=== PATIENT | female | born 1995 | race African-American/Black ===

== ENCOUNTER 2017-01-10 17:27 | Emergency (ER) | payer MEDICAID ==
[~2017-01-10] VITALS: Ht 157.5 cm; Wt 115.0 kg
[~2017-01-10 17:27] MED LIST: IBUP-232 PO; OXYC1TAB63 PO; VENTAER INH
[2017-01-10 17:31] VITALS: BP 128/84; PULSE 89; RESP 16; TEMP 99.6; O2SAT 100
[2017-01-10 19:01] VITALS: BP 130/59; PULSE 94; RESP 16; TEMP 99.8; O2SAT 99
--- NOTE | 2017-01-10 19:10 | PD ---
HPI Chief Complaint: Fever Time Seen by Provider: 19:03 Travel History International Travel<30 days: No Contact w/Intl Traveler<30days: No Traveled to known affect area: No History of Present Illness HPI Patient is a 21-year-old female with history of asthma who presents to emergency room with complaints of fever. Patient reports that she was not feeling well yesterday, reports that she woke up with a temperature 101.2. Patient to take Tylenol around 2 PM today. She reports that she's had a productive cough, no headache, no neck pain, no sore throat. Reports that her body feels achy. Patient reports that her little child was sick prior to the onset of her symptoms with similar symptoms. Patient denies any abdominal pain , nausea vomiting or diarrhea. Patient denies any vaginal discharge or vaginal bleeding. No dysuria, urinary urgency or frequency. No recent travels. Patient with no chest pain or shortness breath at this time. Patient with no other complaints. PFSH Past Medical History Hx Anticoagulant Therapy: No Asthma: Yes Autoimmune Disease: No Blood Disorders: No Anxiety: No Depression: No Cancer: No Cardiovascular Problems: No Chemotherapy: No Cerebrovascular Accident: No Diabetes: No Diminished Hearing: No Endocrine: No Gastrointestinal Disorders: Yes (CHRONIC ABDOMINAL PAIN) GERD: Yes Genitourinary: No Headaches: Yes Immune Disorder: No Implanted Vascular Access Dvce: No Musculoskeletal: No Neurologic: No Psychiatric: No Reproductive: No Respiratory: Yes (ASTHMA) Immunizations Current: Yes Migraines: Yes Seizures: No Sickle Cell Disease: No ?: Not : 2 Para: 1 Miscarriage: 0 : 0 Past Surgical History Section: Yes (x 1) Gynecologic Surgery: Yes (C-SEC) Hysterectomy: No Tonsillectomy: Yes Other Surgery: Yes (ENDOSCOPY AND COLONOSCOPY) Social History Alcohol Use: No Tobacco Use: No Substance Use: No Allergies-Medications (Allergen,Severity, Reaction): Coded Allergies: methylprednisolone (Unverified Allergy, Severe, RASH, ITCHY, 01/10/17) naproxen (Unverified Allergy, Unknown, 01/10/17) throat swelling; Is ok using ibuprofen,advil Reported Meds & Prescriptions Reported Meds & Active Scripts Active Azithromycin 500 Mg Tab 500 Mg PO DAILY Ibuprofen 600 Mg Tab 600 Mg PO Q6HR Oxycodone-Acetaminophen 5-325 mg Tab 1 Tab PO Q4H PRN Reported Ventolin Hfa 18 GM Inh (Albuterol Sulfate) 90 Mcg/Act Aer 2 Puff INH Q4-6H PRN Review of Systems General / Constitutional: Positive: Fever, Chills Eyes: No: Visual changes HENT: No: Headaches, Sore Throat, Rhinitis, Rhinorrhea, Neck Stiffness, Neck Pain Cardiovascular: No: Chest Pain or Discomfort Respiratory: Positive: Cough, No: Shortness of Breath, Wheezing Gastrointestinal: No: Nausea, Vomiting, Abdominal Pain Genitourinary: No: Urgency, Frequency, Dysuria Musculoskeletal: No: Pain Skin: No Rash Neurologic: No: Weakness, Headache Psychiatric: No: Depression Endocrine: No: Polydipsia Hematologic/Lymphatic: No: Easy Bruising Physical Exam Narrative GENERAL: Mild distress SKIN: Focused skin assessment warm/dry. HEAD: Atraumatic. Normocephalic. EYES: Pupils equal and round. No scleral icterus. No injection or drainage. ENT: No nasal bleeding or discharge. Mucous membranes pink and moist. NECK: Trachea midline. No JVD. CARDIOVASCULAR: Regular rate and rhythm. No murmur appreciated. RESPIRATORY: No accessory muscle use. Clear to auscultation. Breath sounds equal bilaterally. GASTROINTESTINAL: Abdomen soft, non-tender, nondistended. Hepatic and splenic margins not palpable. MUSCULOSKELETAL: No obvious deformities. No clubbing. No cyanosis. No edema. NEUROLOGICAL: Awake and alert. No obvious cranial nerve deficits. Motor grossly within normal limits. Normal speech. PSYCHIATRIC: Appropriate mood and affect; insight and judgment normal. Data Data Last Documented VS Vital Signs Date Time Temp Pulse Resp B/P (MAP) Pulse Ox O2 Delivery O2 Flow Rate FiO2 01/10/17 19:01 99.8 94 16 130/59 (82) 99 Room Air Orders Orders Basic Metabolic Panel (Bmp) (01/10/17 19:03) Complete Blood Count With Diff (01/10/17 19:03) Urinalysis - C+S If Indicated (01/10/17 19:03) Iv Access Insert/Monitor (01/10/17 19:03) Sodium Chloride 0.9% Flush (Ns Flush) (01/10/17 19:15) Ed Urine Pregnancytest Poc (01/10/17 19:03) Group A Rapid Strep Screen (01/10/17 19:08) Influenzae A/B Antigen (01/10/17 19:08) Chest, Pa & Lat (01/10/17 19:08) Strep Culture (Group A) (01/10/17 19:42) Azithromycin (Zithromax) (01/10/17 21:00) Labs Laboratory Tests Test 01/10/17 19:21 01/10/17 19:42 Urine Color YELLOW Urine Turbidity HAZY Urine pH 6.5 Urine Specific [place] 1.038 Urine Protein 30 mg/dL Urine Glucose (UA) NEG mg/dL Urine Ketones NEG mg/dL Urine Occult Blood NEG Urine Nitrite NEG Urine Bilirubin NEG Urine Urobilinogen 2.0 MG/DL Urine Leukocyte Esterase NEG Urine RBC 2 /hpf Urine WBC 2 /hpf Urine Squamous Epithelial Cells 20 /hpf Urine Bacteria RARE /hpf Urine Mucus FEW /lpf Microscopic Urinalysis Comment CULT NOT INDICATED White Blood Count 15.8 TH/MM3 Red Blood Count 4.24 MIL/MM3 Hemoglobin 10.5 GM/DL Hematocrit 33.4 % Mean Corpuscular Volume 78.8 FL Mean Corpuscular Hemoglobin 24.8 PG Mean Corpuscular Hemoglobin Concent 31.4 % Red Cell Distribution Width 16.9 % Platelet Count 299 TH/MM3 Mean Platelet Volume 8.1 FL Neutrophils (%) (Auto) 77.2 % Lymphocytes (%) (Auto) 10.7 % Monocytes (%) (Auto) 9.9 % Eosinophils (%) (Auto) 1.9 % Basophils (%) (Auto) 0.3 % Neutrophils # (Auto) 12.2 TH/MM3 Lymphocytes # (Auto) 1.7 TH/MM3 Monocytes # (Auto) 1.6 TH/MM3 Eosinophils # (Auto) 0.3 TH/MM3 Basophils # (Auto) 0.0 TH/MM3 CBC Comment DIFF FINAL Differential Comment Blood Urea Nitrogen 11 MG/DL Creatinine 0.82 MG/DL Random Glucose 83 MG/DL Calcium Level 8.8 MG/DL Sodium Level 137 MEQ/L Potassium Level 4.3 MEQ/L Chloride Level 104 MEQ/L Carbon Dioxide Level 27.0 MEQ/L Anion Gap 6 MEQ/L Estimat Glomerular Filtration Rate 105 ML/MIN MDM Medical Decision Making Medical Screen Exam Complete: Yes Emergency Medical Condition: Yes Interpretation(s) Vital Signs Date Time Temp Pulse Resp B/P (MAP) Pulse Ox O2 Delivery O2 Flow Rate FiO2 8/20/17 19:01 99.8 94 16 130/59 (82) 99 Room Air 01/10/17 17:31 99.6 89 16 128/84 (99) 100 Differential Diagnosis Differential includes viral syndrome, pneumonia, influenza, uti Narrative Course Patient is a 21-year-old female who presents to emergency with complaints of fever for one day. She reports that she has had a productive cough, with myalgias. Reports that her son was recently sick with similar symptoms. Patient did take a Tylenol around 2 PM today. Patient presents the emergency room to find out why she had a fever today. Patient with no headache or dizziness, no neck pain, no chest pain or shortness of breath, no abdominal pain , nausea vomiting or diarrhea. Patient is afebrile while in the emergency room. X-ray chest ordered, UA ordered, will monitor patient. Vital Signs Date Time Temp Pulse Resp B/P (MAP) Pulse Ox O2 Delivery O2 Flow Rate FiO2 01/10/17 19:01 99.8 94 16 130/59 (82) 99 Room Air 01/10/17 17:31 99.6 89 16 128/84 (99) 100 Laboratory Tests Test 01/10/17 19:21 01/10/17 19:42 Urine Color YELLOW (YELLW/STRAW) Urine Turbidity HAZY (CLEAR) Urine pH 6.5 (5.0-8.5) Urine Specific [place] 1.038 (1.002-1.035) Urine Protein 30 mg/dL (NEG-TRACE) Urine Glucose (UA) NEG mg/dL (NEG) Urine Ketones NEG mg/dL (NEG) Urine Occult Blood NEG (NEG) Urine Nitrite NEG (NEG) Urine Bilirubin NEG (NEG) Urine Urobilinogen 2.0 MG/DL (LESS THAN Urine Leukocyte Esterase NEG (NEG) Urine RBC 2 /hpf (0-3) Urine WBC 2 /hpf (0-5) Urine Squamous Epithelial Cells 20 /hpf (0-5) Urine Bacteria RARE /hpf (NONE) Urine Mucus FEW /lpf (OCC) Microscopic Urinalysis Comment CULT NOT INDICATED White Blood Count 15.8 TH/MM3 (4.0-11.0) Red Blood Count 4.24 MIL/MM3 (4.00-5.30) Hemoglobin 10.5 GM/DL (11.6-15.3) Hematocrit 33.4 % (35.0-46.0) Mean Corpuscular Volume 78.8 FL (80.0-100.0) Mean Corpuscular Hemoglobin 24.8 PG (27.0-34.0) Mean Corpuscular Hemoglobin Concent 31.4 % (32.0-36.0) Red Cell Distribution Width 16.9 % (11.6-17.2) Platelet Count 299 TH/MM3 (150-450) Mean Platelet Volume 8.1 FL (7.0-11.0) Neutrophils (%) (Auto) 77.2 % (16.0-70.0) Lymphocytes (%) (Auto) 10.7 % (9.0-44.0) Monocytes (%) (Auto) 9.9 % (0.0-8.0) Eosinophils (%) (Auto) 1.9 % (0.0-4.0) Basophils (%) (Auto) 0.3 % (0.0-2.0) Neutrophils # (Auto) 12.2 TH/MM3 (1.8-7.7) Lymphocytes # (Auto) 1.7 TH/MM3 (1.0-4.8) Monocytes # (Auto) 1.6 TH/MM3 (0-0.9) Eosinophils # (Auto) 0.3 TH/MM3 (0-0.4) Basophils # (Auto) 0.0 TH/MM3 (0-0.2) CBC Comment DIFF FINAL Differential Comment Blood Urea Nitrogen 11 MG/DL (7-18) Creatinine 0.82 MG/DL (0.50-1.00) Random Glucose 83 MG/DL (74-106) Calcium Level 8.8 MG/DL (8.5-10.1) Sodium Level 137 MEQ/L (136-145) Potassium Level 4.3 MEQ/L (3.5-5.1) Chloride Level 104 MEQ/L (98-107) Carbon Dioxide Level 27.0 MEQ/L (21.0-32.0) Anion Gap 6 MEQ/L (5-15) Estimat Glomerular Filtration Rate 105 ML/MIN (>89) chest xray with no acute cardiopulmonary disease Microbiology Date/Time Source Procedure Growth Status 01/10/17 19:42 Throat Group A Streptococcus Screen Pending Received 01/10/17 19:42 Throat Group A Streptococcus Screen ([facility]) - Final Complete 01/10/17 19:40 Nasal Aspirate Influenza Types A,B Antigen ([facility]) - Final NEGATIVE FOR FLU A AND B ANTIGEN.... Complete All labs and studies reviewed. Patient with acute bronchitis. Plan to treat with azithromycin and have her follow up with her pcp. Signs and symptoms of when to return to the ER was reviewed with patient in detail. Diagnosis Primary Impression: Acute bronchitis Qualified Codes: J20.9 - Acute bronchitis, unspecified Additional Impression: Fever Qualified Codes: R50.9 - Fever, unspecified Patient Instructions: General Instructions Additional Instructions: Please take all medications as prescribed Return to the ER as needed Please follow up with your primary care doctor in 2-3 days Return to ER if symptoms worsen or progress Please take Tylenol or ibuprofen for fever Drink plenty of fluids Med/Other Pt SpecificInfo: Prescription(s) given Scripts Azithromycin (Azithromycin) 500 Mg Tab 500 MG PO DAILY for Infection, #5 TAB 0 Refills Prov: Haydee Momin DO 01/10/17 Disposition: 01 DISCHARGE HOME Condition: Stable Haydee Momin DO Jan 10, 2017 19:10
[2017-01-10] MEDS ORDERED: SODIUM CHLORIDE 0.9% FLUSH 10 ML FLUSH IV FLUSH PRN (19:15)
--- NOTE | 2017-01-10 19:35 | RADRPT ---
EXAM DATE/TIME: 01/10/2017 19:22 [facility] COMPARISON: No previous studies available for comparison. INDICATIONS : Cough. MEDICAL HISTORY : None. SURGICAL HISTORY : None. ENCOUNTER: Initial ACUITY: 1 day PAIN SCORE: 0/10 LOCATION: Bilateral chest FINDINGS: The lungs are clear without infiltrate, nodule, or mass. There is no appreciable pleural effusion fo r technique. Heart and mediastinum are unremarkable. CONCLUSION: No acute cardiopulmonary disease. Yon Farias MD on January 10, 2017 at 19:33 Board Certified Radiologist. This report was verified electronically.
[2017-01-10 20:29] LABS: AUTOMATED NEUTROPHIL # 12.2 TH/MM3 (1.8-7.7); BASOPHIL % 0.3 % (0.0-2.0); EOSINOPHIL # 0.3 TH/MM3 (0-0.4); EOSINOPHIL % 1.9 % (0.0-4.0); HEMATOCRIT 33.4 % (35.0-46.0); HEMO FLAGS DIFF FINAL; LYMPH % 10.7 % (9.0-44.0); LYMPHOCYTE # 1.7 TH/MM3 (1.0-4.8); MEAN CELL VOLUME 78.8 FL (80.0-100.0); MEAN CORPUSCULAR HEMOGLOBIN 24.8 PG (27.0-34.0); MEAN CORPUSCULAR HGB CONC 31.4 % (32.0-36.0); MONO % 9.9 % (0.0-8.0); NEUT % 77.2 % (16.0-70.0); PLATELET COUNT 299 TH/MM3 (150-450); RED BLOOD COUNT 4.24 MIL/MM3 (4.00-5.30); RED CELL DISTRIBUTION WIDTH 16.9 % (11.6-17.2); WHITE BLOOD COUNT 15.8 TH/MM3 (4.0-11.0)
[2017-01-10 20:33] LABS: BACTERIA, URINE RARE /hpf; BLOOD, URINE NEG (NEG); COMMENT (UR) CULT NOT INDICATED; CULTURE IF INDICATED CULT NOT INDICATED; GLUCOSE,URINE NEG (NEG); KETONE, URINE NEG (NEG); MUCUS URINE FEW /lpf (OCC); NITRITE,URINE NEG (NEG); PH, URINE 6.5 (5.0-8.5); SQUAMOUS EPITHELIAL CELL URINE 20 /hpf (0-5); URINE COLOR YELLOW (YELLW/STRAW)
[2017-01-10 20:44] LABS: POTASSIUM 4.3 MEQ/L (3.5-5.1)
[2017-01-10] MEDS ORDERED: AZIT500T2 PO (20:56)
[2017-01-10] MEDS ORDERED: AZITHROMYCIN 250 MG TAB PO ONE (21:00)
== END 2017-01-10 22:37 | disposition home or self-care (01) ==
LOC: NEPE 17:27
DX: J20.9 Acute bronchitis, unspecified (principal); M79.1 Myalgia; J45.909 Unspecified asthma, uncomplicated; K21.9 Gastro-esophageal reflux disease without esophagitis; Z79.899 Other long term (current) drug therapy
CPT/HCPCS: 71020; 80048; 81001; 84703; 85025; 87081; 87804; 87880; 99284

== ENCOUNTER 2017-04-15 20:21 | Emergency (ER) | payer MEDICAID ==
[~2017-04-15] VITALS: Ht 157.5 cm; Wt 115.0 kg
[~2017-04-15 20:21] MED LIST changes: +AZIT500T2 PO
[2017-04-15 20:23] VITALS: BP 132/82; PULSE 86; RESP 18; TEMP 98.1; O2SAT 98
--- NOTE | 2017-04-15 21:02 | PD ---
HPI Chief Complaint: Abdominal Pain Time Seen by Provider: 20:54 Travel History International Travel<30 days: No Contact w/Intl Traveler<30days: No Traveled to known affect area: No History of Present Illness HPI 21 yo F abdominal pain in the epigastrium and RUQ. Duration approx 2 weeks. + Fever + vomiting. No urinary symptoms. no diarrhea. decreased PO reported. any solid intake causes worsening pain. liquids are ok. last PO intake was at home, thanksgiving dinner which patient could not tolerate. no vb/vd. lmp was one year ago. pt currently. similar pain after first child possible gallbladder disease, which was normal then. PFSH Past Medical History Hx Anticoagulant Therapy: No Asthma: Yes Autoimmune Disease: No Blood Disorders: No Anxiety: No Depression: No Cancer: No Cardiovascular Problems: No Chemotherapy: No Cerebrovascular Accident: No Diabetes: No Diminished Hearing: No Endocrine: No Gastrointestinal Disorders: Yes (CHRONIC ABDOMINAL PAIN) GERD: Yes Genitourinary: No Headaches: Yes Immune Disorder: No Implanted Vascular Access Dvce: No Musculoskeletal: No Neurologic: No Psychiatric: No Reproductive: No Respiratory: Yes (ASTHMA) Immunizations Current: Yes Migraines: Yes Seizures: No Sickle Cell Disease: No Influenza Vaccination: No ?: Not LMP: no period for year : 2 Para: 12 Miscarriage: 0 : 0 Past Surgical History Section: Yes (x2) Gynecologic Surgery: Yes (C-SEC) Hysterectomy: No Tonsillectomy: Yes Other Surgery: Yes (ENDOSCOPY AND COLONOSCOPY) Social History Alcohol Use: No Tobacco Use: No Substance Use: No Allergies-Medications (Allergen,Severity, Reaction): Coded Allergies: methylprednisolone (Unverified Allergy, Severe, RASH, ITCHY, 04/15/17) ibuprofen (Verified Allergy, Unknown, Anaphylaxis, 04/15/17) naproxen (Unverified Allergy, Unknown, 04/15/17) throat swelling; Is ok using ibuprofen,advil Reported Meds & Prescriptions Reported Meds & Active Scripts Active Azithromycin 500 Mg Tab 500 Mg PO DAILY Ibuprofen 600 Mg Tab 600 Mg PO Q6HR Oxycodone-Acetaminophen 5-325 mg Tab 1 Tab PO Q4H PRN Reported Ventolin Hfa 18 GM Inh (Albuterol Sulfate) 90 Mcg/Act Aer 2 Puff INH Q4-6H PRN Review of Systems Except as stated in HPI: all other systems reviewed are Neg General / Constitutional: Positive: Fever Gastrointestinal: Positive: Nausea, Vomiting, Abdominal Pain, No: Diarrhea Physical Exam Narrative GENERAL: 21 yo F, BMI 46, NAD, WNWD SKIN: Warm and dry. HEAD: Atraumatic. Normocephalic. EYES: Pupils equal and round. No scleral icterus. No injection or drainage. ENT: No nasal bleeding or discharge. Mucous membranes pink and moist. NECK: Trachea midline. No JVD. CARDIOVASCULAR: Regular rate and rhythm. RESPIRATORY: No accessory muscle use. Clear to auscultation. Breath sounds equal bilaterally. GASTROINTESTINAL: Soft. No focus of tenderness. No tenderness at McBurney's point. Negative Stoddard's sign. MUSCULOSKELETAL: Extremities without clubbing, cyanosis, or edema. No obvious deformities. NEUROLOGICAL: Awake and alert. No obvious cranial nerve deficits. Motor grossly within normal limits. Five out of 5 muscle strength in the arms and legs. Normal speech. PSYCHIATRIC: Appropriate mood and affect; insight and judgment normal. Data Data Last Documented VS Vital Signs Date Time Temp Pulse Resp B/P (MAP) Pulse Ox O2 Delivery O2 Flow Rate FiO2 04/15/17 20:23 98.1 86 18 132/82 (99) 98 Room Air VS reviewed Orders Orders Ed Discharge Order (04/15/17 21:09) MDM Medical Decision Making Medical Screen Exam Complete: Yes Emergency Medical Condition: Yes Medical Record Reviewed: Yes Differential Diagnosis gastritis, gallbladder colic, cholecystitis acute or chronic, pancreatitis, IUP Narrative Course ta us shows gb without gbw thickening, no pericholecystic fluid, no stone, no tenderness/Stoddard's sign, no biliary ductal dilatation follow up with gi advised pt agreeable with plan scripts as below Diagnosis Primary Impression: Epigastric pain Additional Impressions: Anorexia Vomiting Qualified Codes: R11.10 - Vomiting, unspecified Referrals: [facility] call for appointment Med/Other Pt SpecificInfo: Prescription(s) given Scripts Famotidine (Pepcid) 20 Mg Tab 20 MG PO BID for 10 Days, #20 TAB 0 Refills Prov: Memo Corcoran MD 04/15/17 Aluminum Hydroxide-Mag Carb Liq (Gaviscon Liq) 95-358 Mg/15 Ml Susp 15-30 ML PO QID Y for HEARTBURN for 7 Days, ML 0 Refills Maximum 120 mL/24 hrs. Prov: Memo Corcoran MD 04/15/17 Ondansetron Odt (Zofran Odt) 4 Mg Tab 4 MG SL Q8HR Y for Nausea/Vomiting, #10 TAB 0 Refills Prov: Memo Corcoran MD 04/15/17 Disposition: 01 DISCHARGE HOME Condition: Stable Memo Corcoran MD Apr 15, 2017 21:02
[2017-04-15] MEDS ORDERED: GAVISUS PO (21:12)
[2017-04-15] MEDS ORDERED: ZOFR4TAB3 SL (21:12)
[2017-04-15] MEDS ORDERED: FAMO1TAB37 PO (21:12)
== END 2017-04-15 21:24 | disposition home or self-care (01) ==
LOC: NEPK 20:21
DX: R10.13 Epigastric pain (principal); R63.0 Anorexia; R11.2 Nausea with vomiting, unspecified; J45.909 Unspecified asthma, uncomplicated; K21.9 Gastro-esophageal reflux disease without esophagitis; Z79.899 Other long term (current) drug therapy; Z88.6 Allergy status to analgesic agent; Z88.8 Allergy status to other drugs, medicaments and biological substances
CPT/HCPCS: 99284

== ENCOUNTER 2017-06-14 23:33 | Emergency (ER) | payer MEDICAID | END 2017-06-15 01:37 | disposition left against medical advice (07) | LOC: NED 23:33 | DX: S89.91XA Unspecified injury of right lower leg, initial encounter (principal); X58.XXXA Exposure to other specified factors, initial encounter | CPT/HCPCS: 99281 ==

== ENCOUNTER 2017-06-19 18:17 | Emergency (ER) | payer MEDICAID ==
[~2017-06-19] VITALS: Ht 157.5 cm; Wt 108.0 kg
[~2017-06-19 18:17] MED LIST changes: +FAMO1TAB37 PO; +GAVISUS PO; +ZOFR4TAB3 SL
[2017-06-19 18:19] VITALS: BP 118/70; PULSE 107; RESP 16; TEMP 99; O2SAT 97
--- NOTE | 2017-06-19 20:13 | PD ---
HPI Chief Complaint: Abdominal Pain Time Seen by Provider: 20:09 Travel History International Travel<30 days: No Contact w/Intl Traveler<30days: No Traveled to known affect area: No History of Present Illness HPI 22-year-old female patient presents to the ER today because she states that she has noticed today that her left arm is swelling, started on its own, and also states she has had abdominal discomfort in the upper abdomen today. She states that her abdominal pain is a 10 out of 10. She also states nausea, but denies any vomiting to me, diarrhea, or any other issues. Modifying Factors: None Associated Signs & Symptoms: Left arm swelling, abdominal pain, nausea Risk Factors: None PFSH Past Medical History Hx Anticoagulant Therapy: No Asthma: Yes Autoimmune Disease: No Blood Disorders: No Anxiety: No Depression: No Cancer: No Cardiovascular Problems: No Chemotherapy: No Cerebrovascular Accident: No Diabetes: No Diminished Hearing: No Endocrine: No Gastrointestinal Disorders: Yes (CHRONIC ABDOMINAL PAIN) GERD: Yes Genitourinary: No Headaches: Yes Immune Disorder: No Implanted Vascular Access Dvce: No Musculoskeletal: No Neurologic: No Psychiatric: No Reproductive: No Respiratory: Yes (ASTHMA) Immunizations Current: Yes Migraines: Yes Seizures: No Sickle Cell Disease: No ?: Not : 2 Para: 12 Miscarriage: 0 : 0 Past Surgical History Section: Yes (x2) Gynecologic Surgery: Yes (C-SEC) Hysterectomy: No Tonsillectomy: Yes Other Surgery: Yes (ENDOSCOPY AND COLONOSCOPY) Social History Alcohol Use: No Tobacco Use: No Substance Use: No Allergies-Medications (Allergen,Severity, Reaction): Coded Allergies: methylprednisolone (Unverified Allergy, Severe, RASH, ITCHY, 06/15/17) ibuprofen (Verified Allergy, Unknown, Anaphylaxis, 06/15/17) naproxen (Unverified Allergy, Unknown, 06/15/17) throat swelling; Is ok using ibuprofen,advil Reported Meds & Prescriptions Reported Meds & Active Scripts Active Reported Phentermine (Phentermine HCl) 37.5 Mg Cap 37.5 Mg PO DAILY Ventolin Hfa 18 GM Inh (Albuterol Sulfate) 90 Mcg/Act Aer 2 Puff INH Q4-6H PRN Review of Systems Except as stated in HPI: all other systems reviewed are Neg Physical Exam Narrative GENERAL: Well-developed young -[place] female patient currently none acute distress. Awake and oriented 3. SKIN: Focused skin assessment warm/dry. HEAD: Atraumatic. Normocephalic. EYES: Pupils equal and round. No scleral icterus. No injection or drainage. ENT: No nasal bleeding or discharge. Mucous membranes pink and moist. NECK: Trachea midline. No JVD. Supple. CARDIOVASCULAR: Regular rate and rhythm. No murmur appreciated. RESPIRATORY: No accessory muscle use. Clear to auscultation. Breath sounds equal bilaterally. GASTROINTESTINAL: Abdomen soft, non-tender, nondistended. Hepatic and splenic margins not palpable. Benign. MUSCULOSKELETAL: No obvious deformities. No clubbing. No cyanosis. No edema. EXTREMITIES: No clubbing, cyanosis, or edema. No joint tenderness, effusion, or edema noted. I do not see significant edema on my evaluation of the left arm, there is no focal areas of tenderness, neurovascularly intact. NEUROLOGICAL: Awake and alert. No obvious cranial nerve deficits. Motor grossly within normal limits. Normal speech. PSYCHIATRIC: Appropriate mood and affect; insight and judgment normal. Data Data Last Documented VS Vital Signs Date Time Temp Pulse Resp B/P (MAP) Pulse Ox O2 Delivery O2 Flow Rate FiO2 06/19/17 18:19 99.0 107 16 118/70 (86) 97 Orders Orders Complete Blood Count With Diff (06/19/17 20:05) Comprehensive Metabolic Panel (06/19/17 20:05) Lipase (06/19/17 20:05) Urinalysis - C+S If Indicated (06/19/17 20:05) Iv Access Insert/Monitor (06/19/17 20:05) Ecg Monitoring (06/19/17 20:05) Oximetry (06/19/17 20:05) Sodium Chloride 0.9% Flush (Ns Flush) (06/19/17 20:15) Ed Urine Pregnancytest Poc (06/19/17 20:05) Us Arm Venous Doppler (06/19/17 20:10) Labs Laboratory Tests Test 06/19/17 20:25 White Blood Count 8.3 TH/MM3 Red Blood Count 4.63 MIL/MM3 Hemoglobin 12.6 GM/DL Hematocrit 36.3 % Mean Corpuscular Volume 78.4 FL Mean Corpuscular Hemoglobin 27.3 PG Mean Corpuscular Hemoglobin Concent 34.8 % Red Cell Distribution Width 17.3 % Platelet Count 297 TH/MM3 Mean Platelet Volume 8.3 FL Neutrophils (%) (Auto) 63.8 % Lymphocytes (%) (Auto) 26.8 % Monocytes (%) (Auto) 7.7 % Eosinophils (%) (Auto) 1.3 % Basophils (%) (Auto) 0.4 % Neutrophils # (Auto) 5.3 TH/MM3 Lymphocytes # (Auto) 2.2 TH/MM3 Monocytes # (Auto) 0.6 TH/MM3 Eosinophils # (Auto) 0.1 TH/MM3 Basophils # (Auto) 0.0 TH/MM3 CBC Comment DIFF FINAL Differential Comment Urine Color YELLOW Urine Turbidity HAZY Urine pH 6.0 Urine Specific [place] 1.041 Urine Protein 100 mg/dL Urine Glucose (UA) NEG mg/dL Urine Ketones 10 mg/dL Urine Occult Blood NEG Urine Nitrite NEG Urine Bilirubin NEG Urine Urobilinogen 2.0 MG/DL Urine Leukocyte Esterase MOD Urine RBC 3 /hpf Urine WBC 3 /hpf Urine Squamous Epithelial Cells 11 /hpf Urine Calcium Oxalate Crystals MANY /hpf Urine Mucus MANY /lpf Microscopic Urinalysis Comment CULT NOT INDICATED Blood Urea Nitrogen 6 MG/DL Creatinine 0.92 MG/DL Random Glucose 95 MG/DL Total Protein 7.9 GM/DL Albumin 4.0 GM/DL Calcium Level 9.7 MG/DL Alkaline Phosphatase 70 U/L Aspartate Amino Transf (AST/SGOT) 14 U/L Alanine Aminotransferase (ALT/SGPT) 17 U/L Total Bilirubin 0.3 MG/DL Sodium Level 141 MEQ/L Potassium Level 3.4 MEQ/L Chloride Level 105 MEQ/L Carbon Dioxide Level 28.4 MEQ/L Anion Gap 8 MEQ/L Estimat Glomerular Filtration Rate 92 ML/MIN Lipase 41 U/L [facility] Medical Decision Making Medical Screen Exam Complete: Yes Emergency Medical Condition: Yes Medical Record Reviewed: Yes Interpretation(s) Laboratory Tests Test 06/19/17 20:25 Mean Corpuscular Volume 78.4 FL (80.0-100.0) Red Cell Distribution Width 17.3 % (11.6-17.2) Urine Turbidity HAZY (CLEAR) Urine Specific [place] 1.041 (1.002-1.035) Urine Protein 100 mg/dL (NEG-TRACE) Urine Ketones 10 mg/dL (NEG) Urine Leukocyte Esterase MOD (NEG) Urine Calcium Oxalate Crystals MANY /hpf (NONE) Urine Mucus MANY /lpf (OCC) Blood Urea Nitrogen 6 MG/DL (7-18) Aspartate Amino Transf (AST/SGOT) 14 U/L (15-37) Potassium Level 3.4 MEQ/L (3.5-5.1) Lipase 41 U/L (73-393) Differential Diagnosis Left arm swelling, abdominal pain: DVT versus muscle spasms versus gastroenteritis versus viral syndrome versus pancreatitis versus dehydration versus metabolic issues Narrative Course Ultrasound the left arm shows no signs of DVT. Abdomen is fairly benign and I' m not suspecting acute intra-abdominal process. No neurovascular issues were identified on evaluation, pulse of present and equal bilaterally. Patient denies any trauma. Lab work did not indicate any significant metabolic issues. There is no leukocytosis. At this point, symptoms may be secondary to a viral illness and some muscle spasms. My plan would be to treat her symptomatically and have her follow-up with primary care doctor. Return for worsening in symptoms as necessary. The plan has been discussed with her and she states understanding. Diagnosis Primary Impression: Abdominal pain Additional Impressions: Left arm pain Left arm swelling Med/Other Pt SpecificInfo: Prescription(s) given Scripts Acetaminophen (Tylenol) 325 Mg Tab 650 MG PO Q6H Y for PAIN SCALE 1 TO 10, #20 TAB 0 Refills Prov: Zaire Luke MD 06/19/17 Cyclobenzaprine (Flexeril) 10 Mg Tab 10 MG PO TID for Muscle Spasm, #12 TAB 0 Refills Prov: Zaire Luke MD 06/19/17 Famotidine (Pepcid) 20 Mg Tab 20 MG PO BID for 10 Days, #20 TAB 0 Refills Prov: Zaire Luke MD 06/19/17 Disposition: 01 DISCHARGE HOME Condition: Stable Zaire Luke MD Jun 19, 2017 20:13
[2017-06-19] MEDS ORDERED: SODIUM CHLORIDE 0.9% FLUSH 10 ML FLUSH IV FLUSH PRN (20:15)
[2017-06-19] MEDS ORDERED: PHEN37.54 PO (20:22)
[2017-06-19 21:02] LABS: AUTOMATED NEUTROPHIL # 5.3 TH/MM3 (1.8-7.7); BASOPHIL % 0.4 % (0.0-2.0); EOSINOPHIL # 0.1 TH/MM3 (0-0.4); EOSINOPHIL % 1.3 % (0.0-4.0); HEMATOCRIT 36.3 % (35.0-46.0); HEMOGLOBIN 12.6 GM/DL (11.6-15.3); LYMPH % 26.8 % (9.0-44.0); LYMPHOCYTE # 2.2 TH/MM3 (1.0-4.8); MEAN CELL VOLUME 78.4 FL (80.0-100.0); MEAN CORPUSCULAR HEMOGLOBIN 27.3 PG (27.0-34.0); MEAN CORPUSCULAR HGB CONC 34.8 % (32.0-36.0); MEAN PLATELET VOLUME 8.3 FL (7.0-11.0); MONO % 7.7 % (0.0-8.0); MONOCYTE # 0.6 TH/MM3 (0-0.9); NEUT % 63.8 % (16.0-70.0); PLATELET COUNT 297 TH/MM3 (150-450); RED BLOOD COUNT 4.63 MIL/MM3 (4.00-5.30); RED CELL DISTRIBUTION WIDTH 17.3 % (11.6-17.2); WHITE BLOOD COUNT 8.3 TH/MM3 (4.0-11.0)
[2017-06-19 21:07] LABS: BLOOD, URINE NEG (NEG); CALCIUM OXALATE CRYSTALS,URINE MANY /hpf; GLUCOSE,URINE NEG (NEG); KETONE, URINE 10 mg/dL (NEG); MUCUS URINE MANY /lpf (OCC); NITRITE,URINE NEG (NEG); SQUAMOUS EPITHELIAL CELL URINE 11 /hpf (0-5); URINE COLOR YELLOW (YELLW/STRAW); URINE LEUKOCYTE ESTERASE MOD (NEG)
[2017-06-19 21:08] LABS: BILIRUBIN, URINE NEG (NEG)
[2017-06-19 21:21] LABS: AST (GOT) 14 U/L (15-37); BICARBONATE 28.4 MEQ/L (21.0-32.0); BLOOD UREA NITROGEN 6 MG/DL (7-18); CALCIUM 9.7 MG/DL (8.5-10.1); CHLORIDE 105 MEQ/L (98-107); CREATININE 0.92 MG/DL (0.50-1.00); GLOMERULAR FILTRATION RATE 92 ML/MIN (>89); GLUCOSE,RANDOM 95 MG/DL (74-106); LIPASE 41 U/L (73-393); SODIUM (NA) 141 MEQ/L (136-145)
[2017-06-19 21:22] LABS: ALT (GPT) 17 U/L (10-53)
[2017-06-19 21:24] LABS: ALKALINE PHOSPHATASE 70 U/L (45-117); TOTAL BILIRUBIN ADULT 0.3 MG/DL (0.2-1.0); TOTAL PROTEIN 7.9 GM/DL (6.4-8.2)
--- NOTE | 2017-06-19 21:36 | RADRPT ---
EXAM DATE/TIME: 06/19/2017 20:29 [facility] COMPARISON: No previous studies available for comparison. INDICATIONS : Left arm swelling. MEDICAL HISTORY : Gastroesophageal reflux disease. Glasses. Migraine. Asthma. Abdominal pain. SURGICAL HISTORY : Tonsillectomy. section. Colonoscopy. Endoscopy. ENCOUNTER: Initial ACUITY: 1 day PAIN SCORE: 5/10 LOCATION: Left arm. FINDINGS: There is spontaneous flow documented in the brachial, basilic, cephalic, axillary, and subclavian vei ns. The vessels are compressible and augmentation response is documented. No filling defects are se en. The flow is phasic with respiration. Direction of flow in the jugular vein is caudal. CONCLUSION: No venous thrombosis of the left upper extremity. Hill Angel MD on June 19, 2017 at 21:33 Board Certified Radiologist. This report was verified electronically.
[2017-06-19] MEDS ORDERED: FAMO1TAB37 PO (21:41)
[2017-06-19] MEDS ORDERED: TYLE325T PO (21:41)
[2017-06-19] MEDS ORDERED: CYCL10TA PO (21:41)
[2017-06-19] MEDS ORDERED: CYCLOBENZAPRINE HCL 10 MG TAB PO ONE (21:45)
== END 2017-06-19 21:58 | disposition home or self-care (01) ==
LOC: NEPC 18:17
DX: R10.9 Unspecified abdominal pain (principal); M79.602 Pain in left arm; M79.89 Other specified soft tissue disorders; J45.909 Unspecified asthma, uncomplicated
CPT/HCPCS: 80053; 81001; 83690; 84703; 85025; 93971; 99285

== ENCOUNTER 2017-06-28 17:44 | Emergency (ER) | payer MEDICAID ==
[~2017-06-28 17:44] MED LIST changes: -AZIT500T2 PO; +CYCL10TA PO; -GAVISUS PO; -IBUP-232 PO; -OXYC1TAB63 PO; +PHEN37.54 PO; +TYLE325T PO; -ZOFR4TAB3 SL
[2017-06-28 17:47] VITALS: BP 98/60; PULSE 100; RESP 16; TEMP 97.7; O2SAT 100
--- NOTE | 2017-06-28 21:04 | PD ---
HPI Chief Complaint: Skin Problem Time Seen by Provider: 20:55 Travel History International Travel<30 days: No Contact w/Intl Traveler<30days: No Traveled to known affect area: No History of Present Illness HPI Patient's 22-year-old female presenting to emergency for evaluation of lumps on her skin. Patient states they've been there for a while, she reports that she' s been here for this and then has been to her primary doctor several times. She denies redness, drainage, fevers, chills. She states that her primary doctor didn't do anything. Patient reports that she feels they're getting bigger. She reports that these lumps caused her to have muscle pain. She reports the pain as a 3 out of 10 and states it feels sore. Symptom onset was gradual, there are no alleviating factors. There are no exacerbating factors. PFSH Past Medical History Hx Anticoagulant Therapy: No Asthma: Yes Autoimmune Disease: No Blood Disorders: No Anxiety: No Depression: No Cancer: No Cardiovascular Problems: No Chemotherapy: No Cerebrovascular Accident: No Diabetes: No Diminished Hearing: No Endocrine: No Gastrointestinal Disorders: Yes (CHRONIC ABDOMINAL PAIN) GERD: Yes Genitourinary: No Headaches: Yes Immune Disorder: No Implanted Vascular Access Dvce: No Musculoskeletal: No Neurologic: No Psychiatric: No Reproductive: No Respiratory: Yes (ASTHMA) Immunizations Current: Yes Migraines: Yes Seizures: No Sickle Cell Disease: No ?: Not : 2 Para: 2 Miscarriage: 0 : 0 Past Surgical History Section: Yes (x2) Gynecologic Surgery: Yes (C-SEC) Hysterectomy: No Tonsillectomy: Yes Other Surgery: Yes (ENDOSCOPY AND COLONOSCOPY) Social History Alcohol Use: No Tobacco Use: No Substance Use: No Allergies-Medications (Allergen,Severity, Reaction): Coded Allergies: methylprednisolone (Unverified Allergy, Severe, RASH, ITCHY, 06/28/17) Reported Meds & Prescriptions Reported Meds & Active Scripts Active Tylenol (Acetaminophen) 325 Mg Tab 650 Mg PO Q6H PRN Reported Phentermine (Phentermine HCl) 37.5 Mg Cap 37.5 Mg PO DAILY Ventolin Hfa 18 GM Inh (Albuterol Sulfate) 90 Mcg/Act Aer 2 Puff INH Q4-6H PRN Review of Systems Except as stated in HPI: all other systems reviewed are Neg Skin: Positive Lumps Physical Exam Narrative GENERAL: Obese, well-developed, alert female. Presenting in no acute distress. SKIN: Warm and dry. No rash or obvious lesions, no palpable lumps or masses. HEAD: Normocephalic. EYES: No scleral icterus. No injection or drainage. NECK: Supple, trachea midline. No JVD or lymphadenopathy. CARDIOVASCULAR: Regular rate and rhythm without murmurs, gallops, or rubs. RESPIRATORY: Breath sounds equal bilaterally. No accessory muscle use. GASTROINTESTINAL: Abdomen soft, non-tender, nondistended. MUSCULOSKELETAL: No cyanosis, or edema. BACK: Nontender without obvious deformity. No CVA tenderness. Data Data Last Documented VS Vital Signs Date Time Temp Pulse Resp B/P (MAP) Pulse Ox O2 Delivery O2 Flow Rate FiO2 06/28/17 17:47 97.7 100 16 98/60 (73) [address] [facility] Medical Decision Making Medical Screen Exam Complete: Yes Emergency Medical Condition: Yes Interpretation(s) Vital Signs Date Time Temp Pulse Resp B/P (MAP) Pulse Ox O2 Delivery O2 Flow Rate FiO2 06/28/17 17:47 97.7 100 16 98/60 (73) 100 Differential Diagnosis Lipoma versus abscess versus cyst versus normal exam Narrative Course Patient is a morbidly obese female presenting for evaluation of reported lumps on her skin. Physical examination appears consistent with subcutaneous fat. There were no palpable lumps, masses, redness, warmth, fluctuance noted in any of the areas patient addressed. Her vital signs are stable. She was encouraged to follow-up with her primary doctor for possible referral to title supervisor if needed. A medical screening exam was performed: At the time of evaluation the presenting medical condition was determined not to be of an emergent nature. The patient was given the option of receiving additional care, but declined. Patient was given options for additional community resources from which to obtain care. The Patient Has Been advised to seek medical attention for their presenting complaint. The patient has been advised to return to the ER at any time if an emergent condition develops. Diagnosis Primary Impression: Encounter for medical screening examination Condition: Stable Nisha Jesus Jun 28, 2017 21:04
== END 2017-06-28 21:09 | disposition left against medical advice (07) ==
LOC: NEPK 17:44
DX: R22.9 Localized swelling, mass and lump, unspecified (principal)
CPT/HCPCS: 99281

== ENCOUNTER 2017-07-05 14:33 | Emergency (ER) | payer MEDICAID ==
[~2017-07-05 14:33] MED LIST changes: -CYCL10TA PO; -FAMO1TAB37 PO
[2017-07-05 14:35] VITALS: BP 121/82; PULSE 115; RESP 16; TEMP 98.2; O2SAT 97
--- NOTE | 2017-07-05 15:09 | RADRPT ---
EXAM DATE/TIME: 07/05/2017 14:59 [facility] COMPARISON: CHEST PA & LAT, January 10, 2017, 19:22. INDICATIONS : Chest pain for 1 day. MEDICAL HISTORY : Asthma. SURGICAL HISTORY : None. ENCOUNTER: Initial ACUITY: 1 day PAIN SCORE: 7/10 LOCATION: Left chest FINDINGS: PA and lateral views of the chest demonstrate the lungs to be symmetrically aerated without evidence of mass, infiltrate or effusion. The cardiomediastinal contours are unremarkable. Osseous structure s are intact. CONCLUSION: No acute disease. Martinez Velarde MD FACR on July 05, 2017 at 15:06 Board Certified Radiologist. This report was verified electronically.
[2017-07-05] MEDS ORDERED: KETOROLAC TROMETHAMINE 30 MG/ML (IVP) VIAL IV PUSH ONE (16:15)
[2017-07-05] MEDS ORDERED: ONDANSETRON HCL 4 MG/2 ML VIAL IV PUSH ONE (16:15)
[2017-07-05] MEDS ORDERED: MORPHINE SULFATE 4 MG/ML INJ IV PUSH ONE (16:15)
--- NOTE | 2017-07-05 16:17 | PD ---
HPI Chief Complaint: Chest Pain Time Seen by Provider: 15:53 Travel History International Travel<30 days: No Contact w/Intl Traveler<30days: No Traveled to known affect area: No History of Present Illness HPI The patient is a 22-year-old after [place] female who presents to the emergency department for left arm pain and left-sided chest pain. The patient states she has had some lumps in the left upper extremity for the last month, was initially told they were lipomas and advised to follow-up with a physician on an outpatient basis. The patient then went to an urgent care was advised they were not a lipoma and a follow-up with her doctor. The patient then saw her doctor, Dr. Lazcano, who ordered her outpatient blood test. This was on Wednesday, however, the patient did not have the blood test performed over the weekend and states she was unable to go this morning prior to work at 10 AM because of her children. She then developed left arm pain which is located over the shoulder and the proximal wrist, sharp, worse with certain movements, radiates to the chest. She also complains of shortness of breath secondary to the pain. She denies any history of PE or DVT. She denies any fever, chills, or sweats. She denies any trauma to left upper extremity. She denies any associated fever, chills, or sweats. PFSH Past Medical History Hx Anticoagulant Therapy: No Asthma: Yes Autoimmune Disease: No Blood Disorders: No Anxiety: No Depression: No Cancer: No Cardiovascular Problems: No Chemotherapy: No Cerebrovascular Accident: No Diabetes: No Diminished Hearing: No Endocrine: No Gastrointestinal Disorders: Yes (CHRONIC ABDOMINAL PAIN) GERD: Yes Genitourinary: No Headaches: Yes Immune Disorder: No Implanted Vascular Access Dvce: No Musculoskeletal: No Neurologic: No Psychiatric: No Reproductive: No Respiratory: Yes (ASTHMA) Immunizations Current: Yes Migraines: Yes Seizures: No Sickle Cell Disease: No : 2 Para: 2 Miscarriage: 0 : 0 Past Surgical History Section: Yes (x2) Gynecologic Surgery: Yes (C-SEC) Hysterectomy: No Tonsillectomy: Yes Other Surgery: Yes (ENDOSCOPY AND COLONOSCOPY) Social History Alcohol Use: No Tobacco Use: No Substance Use: No Allergies-Medications (Allergen,Severity, Reaction): Coded Allergies: methylprednisolone (Unverified Allergy, Severe, RASH, ITCHY, 07/05/17) Reported Meds & Prescriptions Reported Meds & Active Scripts Active Robaxin (Methocarbamol) 750 Mg Tab 750 Mg PO QID Mobic (Meloxicam) 15 Mg Tab 15 Mg PO DAILY Tylenol (Acetaminophen) 325 Mg Tab 650 Mg PO Q6H PRN Reported Phentermine (Phentermine HCl) 37.5 Mg Cap 37.5 Mg PO DAILY Ventolin Hfa 18 GM Inh (Albuterol Sulfate) 90 Mcg/Act Aer 2 Puff INH Q4-6H PRN Review of Systems Except as stated in HPI: all other systems reviewed are Neg General / Constitutional: No: Fever Cardiovascular: Positive: Chest Pain or Discomfort Respiratory: Positive: Shortness of Breath Gastrointestinal: No: Nausea, Vomiting, Abdominal Pain Genitourinary: No: Dysuria Musculoskeletal: Positive: Myalgias, Edema, Pain Neurologic: No: Paresthesia, Sensory Disturbance Physical Exam Narrative GENERAL: Awake, alert, pleasant 22-year-old Lesia female who appears her stated age and is in no acute respiratory distress. SKIN: Focused skin assessment warm/dry. HEAD: Atraumatic. Normocephalic. EYES: Pupils equal and round. No scleral icterus. No injection or drainage. ENT: No nasal bleeding or discharge. Mucous membranes pink and moist. NECK: Trachea midline. No JVD. CARDIOVASCULAR: Regular, tachycardic with a heart rate of 115. RESPIRATORY: No accessory muscle use. Clear to auscultation. Breath sounds equal bilaterally. GASTROINTESTINAL: Abdomen soft, non-tender, nondistended. Obese. MUSCULOSKELETAL: No obvious deformities. No obvious edema left upper extremity compared to the right. Positive left radial pulse. Full range of motion actively and passively, palpation of the left wrist and left shoulder does reproduce symptoms. Palpation left lateral chest wall reproduces symptoms. NEUROLOGICAL: Awake and alert. No obvious cranial nerve deficits. Motor grossly within normal limits. Normal speech. Nonfocal. PSYCHIATRIC: Appropriate mood and affect; insight and judgment normal. Data Data Last Documented VS Vital Signs Date Time Temp Pulse Resp B/P (MAP) Pulse Ox O2 Delivery O2 Flow Rate FiO2 07/05/17 16:55 18 07/05/17 14:35 98.2 115 121/82 (95) 97 Orders Orders Electrocardiogram (07/05/17 14:41) Chest, Pa & Lat (07/05/17 14:41) Troponin I (07/05/17 16:02) Creatine Kinase (Cpk) (07/05/17 16:02) D-Dimer (07/05/17 16:02) Ketorolac Inj (Toradol Inj) (07/05/17 16:15) Morphine Inj (Morphine Inj) (07/05/17 16:15) Ondansetron Inj (Zofran Inj) (07/05/17 16:15) Spine, Cervical - Ltd (Ap&Lat) (07/05/17 17:24) Us Arm Venous Doppler Bilat (07/05/17 17:24) Ed Discharge Order (07/05/17 19:48) Labs Laboratory Tests Test 07/05/17 16:05 D-Dimer Quantitative (PE/DVT) 0.90 MG/L FEU Total Creatine Kinase 114 U/L Troponin I LESS THAN 0.02 NG/ML MDM Medical Decision Making Medical Screen Exam Complete: Yes Emergency Medical Condition: Yes Medical Record Reviewed: Yes Interpretation(s) Last Impressions Chest X-Ray 07/05/17 1441 Impressions: Service Date/Time: Wednesday, July 05, 2017 14:59 - CONCLUSION: No acute disease. Martinez Velarde MD FACR EKG reveals normal sinus rhythm with a rate of 79. No ischemic changes or ectopy noted. Differential Diagnosis Differential diagnosis includes DVT, pulmonary embolism, muscle strain, myalgias , ACS, Pancoast tumor, autoimmune disorder Narrative Course IV was established, labs are drawn and sent, and the patient was placed on cardiac telemetry monitoring and continuous pulse oximetry monitoring. EKG was ordered and interpreted. The patient was tachycardic with unexplained left upper extremity pain and edema per her report, although there is no obvious edema on exam. Therefore, d-dimer was ordered, if positive the patient will require ultrasound left upper extremity and CT pulmonary angiogram. The patient was administered Toradol, morphine, and Zofran. EKG was ordered and interpreted. Chest x-ray was performed, was unremarkable. The patient was signed out to Dr. Quinn at 5 PM. Scripts Methocarbamol (Robaxin) 750 Mg Tab 750 MG PO QID for Muscle Spasm, #40 TAB 0 Refills Prov: Harinder Quinn MD 07/05/17 Meloxicam (Mobic) 15 Mg Tab 15 MG PO DAILY for Pain, #20 TAB 0 Refills Prov: Harinder Quinn MD 07/05/17 Condition: Stable Demetri Lopez MD Jul 05, 2017 16:17
[2017-07-05 16:55] VITALS: RESP 18
[2017-07-05 17:04] LABS: TROPONIN I LESS THAN 0.02 NG/ML (0.02-0.05)
--- NOTE | 2017-07-05 18:03 | RADRPT ---
EXAM DATE/TIME: 07/05/2017 17:50 [facility] COMPARISON: No previous studies available for comparison. INDICATIONS : Left neck pain and swelling, no injury. MEDICAL HISTORY : None. SURGICAL HISTORY : None. ENCOUNTER: Initial ACUITY: 1 week PAIN SCORE: 10/10 LOCATION: Left neck. FINDINGS: Two projection examination was performed. Mild straightening of the lordotic curvature may be positio nal. No evidence of fracture or subluxation. Vertebral body height is maintained. There appears to be a small spur off the inferior aspect of the anterior arch of C1. The disc spaces are maintained. The prevertebral soft tissues are of normal thickness. The atlanto-axial articulation is intact. CONCLUSION: 1. Straightening of the normal lordotic curvature may be positional. No fracture or listhesis. 2. Small spur projects inferiorly off the anterior arch of C1. This is overtly benign. Ramiro Hughes MD on July 05, 2017 at 17:59 Board Certified Radiologist. This report was verified electronically.
--- NOTE | 2017-07-05 18:17 | PD ---
Physical Exam Narrative Patient was seen by ED physician and signed out to me. Examination reveals patient has mild to moderate tenderness to palpation left paraspinal cervical spine, left shoulder pad and diffuse tenderness over left shoulder and left arm. Data Data Last Documented VS Vital Signs Date Time Temp Pulse Resp B/P (MAP) Pulse Ox O2 Delivery O2 Flow Rate FiO2 07/05/17 16:55 18 07/05/17 14:35 98.2 115 121/82 (95) 97 Orders Orders Electrocardiogram (07/05/17 14:41) Basic Metabolic Panel (Bmp) (07/05/17 14:41) Complete Blood Count With Diff (07/05/17 14:41) Magnesium (Mg) (07/05/17 14:41) Chest, Pa & Lat (07/05/17 14:41) Troponin I (07/05/17 16:02) Creatine Kinase (Cpk) (07/05/17 16:02) D-Dimer (07/05/17 16:02) Ketorolac Inj (Toradol Inj) (07/05/17 16:15) Morphine Inj (Morphine Inj) (07/05/17 16:15) Ondansetron Inj (Zofran Inj) (07/05/17 16:15) Spine, Cervical - Ltd (Ap&Lat) (07/05/17 17:24) Us Arm Venous Doppler Bilat (07/05/17 17:24) Ed Discharge Order (07/05/17 19:48) Labs Laboratory Tests Test 07/05/17 16:05 D-Dimer Quantitative (PE/DVT) 0.90 MG/L FEU Total Creatine Kinase 114 U/L Troponin I LESS THAN 0.02 NG/ML MDM Supervised Visit with DANNIE: Yes Interpretation(s) Last Impressions Chest X-Ray 07/05/17 1441 Signed Impressions: Service Date/Time: Wednesday, July 05, 2017 14:59 - CONCLUSION: No acute disease. Martinez Velarde MD FACR X-ray cervical spine show straightening of normal lordotic curvature. D-dimer 0.9. Doppler ultrasound left upper extremity negative for DVT. Diagnosis Primary Impression: Cervical radiculopathy Patient Instructions: General Instructions Additional Instruction: Take medication as directed. Follow-up with personal physician. Return if worse. Med/Other Pt SpecificInfo: Prescription(s) given Scripts Methocarbamol (Robaxin) 750 Mg Tab 750 MG PO QID for Muscle Spasm, #40 TAB 0 Refills Prov: Harinder Quinn MD 07/05/17 Meloxicam (Mobic) 15 Mg Tab 15 MG PO DAILY for Pain, #20 TAB 0 Refills Prov: Harinder Quinn MD 07/05/17 Disposition: 01 DISCHARGE HOME Condition: Stable Harinder Quinn MD Jul 05, 2017 18:17
--- NOTE | 2017-07-05 18:52 | RADRPT ---
EXAM DATE/TIME: 07/05/2017 18:07 [facility] COMPARISON: No previous studies available for comparison. INDICATIONS : Bilateral arm swelling. MEDICAL HISTORY : Migraines. Asthma. GERD. SURGICAL HISTORY : Tonsillectomy. section. Endosocpy. Colonoscopy. ENCOUNTER: Initial ACUITY: 1 month PAIN SCORE: 8/10 LOCATION: Bilateral arm. FINDINGS: RIGHT UPPER EXTREMITY: There is spontaneous flow documented in the brachial, basilic, cephalic, axillary, and subclavian vei ns. The vessels are compressible and augmentation response is documented. No filling defects are se en. The flow is phasic with respiration. Direction of flow in the jugular vein is caudal. LEFT UPPER EXTREMITY: There is spontaneous flow documented in the brachial, basilic, cephalic, axillary, and subclavian vei ns. The vessels are compressible and augmentation response is documented. No filling defects are se en. The flow is phasic with respiration. Direction of flow in the jugular vein is caudal. CONCLUSION: Normal examination. Miguel Lara MD on July 05, 2017 at 18:49 Board Certified Radiologist. This report was verified electronically.
[2017-07-05] MEDS ORDERED: MOBI15TA PO (19:05)
[2017-07-05] MEDS ORDERED: ROBA750T PO (19:05)
--- NOTE | 2017-07-06 18:18 | EKG ---
Date Performed: 07/05/2017 Time Performed: 16:04:26 PTAGE: 22 years EKG: Sinus rhythm When compared to previous tracing, sinus rate is slower. NORMAL ECG PREVIOUS TRACING : 03/14/2015 00.19 DOCTOR: Kirby Cordoba Interpretating Date/Time 07/06/2017 18:18:05
== END 2017-07-05 20:08 | disposition home or self-care (01) ==
LOC: NEPD 14:33
DX: M54.12 Radiculopathy, cervical region (principal); J45.909 Unspecified asthma, uncomplicated; G89.29 Other chronic pain; K21.9 Gastro-esophageal reflux disease without esophagitis
CPT/HCPCS: 71046; 72040; 82550; 84484; 85379; 93005; 93970; 96374; 96375; 99285; J1885; J2270; J2405

== ENCOUNTER 2017-07-26 19:18 | Emergency (ER) | payer MEDICAID ==
[~2017-07-26 19:18] MED LIST changes: +MOBI15TA PO; +ROBA750T PO
[2017-07-26 19:43] VITALS: BP 138/69; PULSE 121; RESP 25; TEMP 97.4; O2SAT 97
--- NOTE | 2017-07-26 20:30 | RADRPT ---
EXAM DATE/TIME: 07/26/2017 19:54 [facility] COMPARISON: CHEST PA & LAT, July 05, 2017, 14:59. INDICATIONS : Chest pain today. MEDICAL HISTORY : Asthma. SURGICAL HISTORY : None. ENCOUNTER: Initial ACUITY: 1 day PAIN SCORE: 10/10 LOCATION: Bilateral chest FINDINGS: PA and lateral views of the chest demonstrate the lungs to be symmetrically aerated without evidence of mass, infiltrate or effusion. No pneumothorax. The cardiomediastinal contours are unremarkable. Osseous structures are intact. CONCLUSION: No acute cardiopulmonary disease. Richie Mancilla MD on July 26, 2017 at 20:29 Board Certified Radiologist. This report was verified electronically.
--- NOTE | 2017-07-26 21:22 | PD ---
HPI Chief Complaint: Chest Pain Time Seen by Provider: 19:42 Travel History International Travel<30 days: No Contact w/Intl Traveler<30days: No Traveled to known affect area: No History of Present Illness HPI 22-year-old female presents to emergency department for evaluation substernal chest pain that radiates to her left upper extremity. This began happening intermittently since last night. Patient denies any shortness of breath. She has felt mildly nauseous. No diaphoresis. No sensation of lightheadedness. Patient is concerned because her cousin in his 20s of a heart attack. PFSH Past Medical History Hx Anticoagulant Therapy: No Asthma: Yes Autoimmune Disease: No Blood Disorders: No Anxiety: No Depression: No Cancer: No Cardiovascular Problems: No Chemotherapy: No Cerebrovascular Accident: No Diabetes: No Diminished Hearing: No Endocrine: No Gastrointestinal Disorders: Yes (CHRONIC ABDOMINAL PAIN) GERD: Yes Genitourinary: No Headaches: Yes Immune Disorder: No Implanted Vascular Access Dvce: No Musculoskeletal: No Neurologic: No Psychiatric: No Reproductive: No Respiratory: Yes (ASTHMA) Immunizations Current: Yes Migraines: Yes Seizures: No Sickle Cell Disease: No : 2 Para: 2 Miscarriage: 0 : 0 Past Surgical History Section: Yes (x2) Gynecologic Surgery: Yes (C-SEC) Hysterectomy: No Tonsillectomy: Yes Other Surgery: Yes (ENDOSCOPY AND COLONOSCOPY) Social History Alcohol Use: No Tobacco Use: No Substance Use: No Allergies-Medications (Allergen,Severity, Reaction): Coded Allergies: methylprednisolone (Unverified Allergy, Severe, RASH, ITCHY, 07/05/17) Reported Meds & Prescriptions Reported Meds & Active Scripts Active Robaxin (Methocarbamol) 750 Mg Tab 750 Mg PO QID Mobic (Meloxicam) 15 Mg Tab 15 Mg PO DAILY Tylenol (Acetaminophen) 325 Mg Tab 650 Mg PO Q6H PRN Reported Phentermine (Phentermine HCl) 37.5 Mg Cap 37.5 Mg PO DAILY Ventolin Hfa 18 GM Inh (Albuterol Sulfate) 90 Mcg/Act Aer 2 Puff INH Q4-6H PRN Review of Systems Except as stated in HPI: all other systems reviewed are Neg Physical Exam Narrative Obese female patient, ambulatory no acute distress. Even respirations. Tachycardic rate. Abdomen is rotund. Patient moves all extremities. She speaks clearly to me. Data Data Last Documented VS Vital Signs Date Time Temp Pulse Resp B/P (MAP) Pulse Ox O2 Delivery O2 Flow Rate FiO2 07/26/17 19:43 97.4 121 25 138/69 (92) 97 Orders Orders Electrocardiogram (07/26/17 19:45) Chest, Pa & Lat (07/26/17 19:45) MDM Medical Decision Making Medical Screen Exam Complete: Yes Emergency Medical Condition: Yes Medical Record Reviewed: Yes Differential Diagnosis Pleuritic pain versus chest wall pain versus indigestion versus ACS Narrative Course 22-year-old female presents to emergency department for evaluation of chest pain since last night. Patient appears nontoxic. She appears without distress. Workup is initiated in triage. Prior to bed placement, patient chooses to leave AMA: The risks of leaving against medical advice without further evaluation treatment were discussed with the patient. These risks include cardiac dysfunction, cardiac dysrhythmia, possible heart attack, possible stroke or . The patient indicated understanding of these risks and appeared to have the capacity to make this decision. Diagnosis Primary Impression: Chest pain Disposition: 07 AGAINST MEDICAL ADVICE Condition: Stable Valeria Boyd Jul 26, 2017 21:22
--- NOTE | 2017-07-27 19:07 | EKG ---
Date Performed: 07/26/2017 Time Performed: 20:38:41 PTAGE: 22 years EKG: Sinus rhythm WITH SHORT CO INTERVAL BORDERLINE ECG Since the prior tracing, there has been no significant change PREVIOUS TRACING : 07/05/2017 16.04 DOCTOR: Stevie Cuellar Interpretating Date/Time 07/27/2017 19:06:20
== END 2017-07-26 21:19 | disposition left against medical advice (07) ==
LOC: NED 19:18
DX: R07.9 Chest pain, unspecified (principal); J45.909 Unspecified asthma, uncomplicated; K21.9 Gastro-esophageal reflux disease without esophagitis; R94.31 Abnormal electrocardiogram [ECG] [EKG]; Z88.8 Allergy status to other drugs, medicaments and biological substances; Z79.899 Other long term (current) drug therapy
CPT/HCPCS: 71046; 93005

== ENCOUNTER 2017-10-28 13:47 | Emergency (ER) | payer MEDICAID ==
[~2017-10-28] VITALS: Ht 157.5 cm; Wt 95.0 kg
[2017-10-28 13:51] VITALS: BP 138/71; PULSE 123; RESP 17; TEMP 98.3; O2SAT 100
[2017-10-28 14:30] LABS: AUTOMATED NEUTROPHIL # 4.6 TH/MM3 (1.8-7.7); BASOPHIL % 0.6 % (0.0-2.0); EOSINOPHIL # 0.1 TH/MM3 (0-0.4); HEMATOCRIT 42.1 % (35.0-46.0); HEMOGLOBIN 13.6 GM/DL (11.6-15.3); LYMPH % 22.8 % (9.0-44.0); LYMPHOCYTE # 1.5 TH/MM3 (1.0-4.8); MEAN CELL VOLUME 82.7 FL (80.0-100.0); MEAN CORPUSCULAR HEMOGLOBIN 26.8 PG (27.0-34.0); MEAN CORPUSCULAR HGB CONC 32.4 % (32.0-36.0); MEAN PLATELET VOLUME 8.5 FL (7.0-11.0); MONO % 7.4 % (0.0-8.0); MONOCYTE # 0.5 TH/MM3 (0-0.9); NEUT % 68.2 % (16.0-70.0); PLATELET COUNT 373 TH/MM3 (150-450); RED BLOOD COUNT 5.09 MIL/MM3 (4.00-5.30); RED CELL DISTRIBUTION WIDTH 15.7 % (11.6-17.2); WHITE BLOOD COUNT 6.7 TH/MM3 (4.0-11.0)
[2017-10-28 14:47] LABS: AST (GOT) 14 U/L (15-37); BICARBONATE 26.5 MEQ/L (21.0-32.0); BLOOD UREA NITROGEN 9 MG/DL (7-18); CALCIUM 9.9 MG/DL (8.5-10.1); CHLORIDE 104 MEQ/L (98-107); CREATININE 0.86 MG/DL (0.50-1.00); GLOMERULAR FILTRATION RATE 99 ML/MIN (>89); GLUCOSE,RANDOM 102 MG/DL (74-106); SODIUM (NA) 140 MEQ/L (136-145)
[2017-10-28 14:51] LABS: ALKALINE PHOSPHATASE 88 U/L (45-117); ALT (GPT) 16 U/L (10-53); TOTAL BILIRUBIN ADULT 0.4 MG/DL (0.2-1.0); TOTAL PROTEIN 8.6 GM/DL (6.4-8.2)
[2017-10-28] MEDS ORDERED: diphenhydrAMINE HCL 50 MG/ML VIAL IV PUSH ONE (15:30)
[2017-10-28] MEDS ORDERED: PROCHLORPERAZINE INJ 10 MG/2 ML VIAL IV PUSH ONE (15:30)
[2017-10-28] MEDS ORDERED: SODIUM CHLOR 0.9% 1000 ML INJ 1,000 ML IV ONE (15:30)
[2017-10-28 15:47] VITALS: BP 105/59; PULSE 101; PULSE 85; RESP 18; O2SAT 99
--- NOTE | 2017-10-28 15:52 | RADRPT ---
EXAM DATE: 10/28/2017 3:51 PM EDT AGE/SEX: 22 years / Female INDICATIONS: Evaluate chest for trauma, fell CLINICAL DATA: This is the patient's initial encounter. Patient reports that signs and symptoms have been present for 1 day and indicates a pain score of 0/10. MEDICAL/SURGICAL HISTORY: Asthma. None. COMPARISON: No prior exams available for comparison. FINDINGS: A single AP view of the chest demonstrates the lungs to be symmetrically aerated without evidence of mass, infiltrate or effusion. The cardiomediastinal contours are unremarkable. Osseous structures a re intact. CONCLUSION: Negative examination. Electronically signed by: Hill White MD 10/28/2017 3:51 PM EDT
--- NOTE | 2017-10-28 17:57 | RADRPT ---
EXAM DATE: 10/28/2017 5:53 PM EDT AGE/SEX: 22 years / Female INDICATIONS: Dizziness, syncopal episodes. CLINICAL DATA: This is the patient's initial encounter. Patient reports that signs and symptoms have been present for 3 days and indicates a pain score of 0/10. MEDICAL/SURGICAL HISTORY: Asthma. None. RADIATION DOSE: 56.35 CTDI (mGy) COMPARISON: [facility] [place], CT BRAIN W/O CONTRAST, 03/12/2015. . TECHNIQUE: CT of the head without contrast. Using automated exposure control and adjustment of the mA and/or kV according to patient size, radiation dose was kept as low as reasonably achievable to ob tain optimal diagnostic quality images. FINDINGS: There is no evidence for intracranial hemorrhage, mass effect, mass lesions, edema, or extra-axial fl uid collections. The visualized bony structures appear intact. The ventricles are normal size for t he patient's age. There are no signs of acute infarction for technique. CONCLUSION: Unremarkable study. Electronically signed by: Wes Farias MD 10/28/2017 5:55 PM EDT
[2017-10-28] MEDS ORDERED: KETOROLAC TROMETHAMINE 30 MG/ML (IVP) VIAL IV PUSH ONE (18:00)
[2017-10-28 18:30] LABS: BILIRUBIN, URINE NEG (NEG); BLOOD, URINE NEG (NEG); GLUCOSE,URINE NEG (NEG); HYALINE CAST, URINE 2 /lpf (RARE); KETONE, URINE 10 mg/dL (NEG); MUCUS URINE MOD /lpf (OCC); NITRITE,URINE NEG (NEG); SQUAMOUS EPITHELIAL CELL URINE 4 /hpf (0-5); URINE COLOR YELLOW (YELLW/STRAW); URINE LEUKOCYTE ESTERASE NEG (NEG)
[2017-10-28] MEDS ORDERED: PROC10TA PO (18:43)
--- NOTE | 2017-10-28 18:47 | PD ---
HPI Chief Complaint: Syncope/Near-Syncope Time Seen by Provider: 15:15 Travel History International Travel<30 days: No Contact w/Intl Traveler<30days: No Traveled to known affect area: No History of Present Illness HPI 22-year-old female that presents to the ED for evaluation of headache that she has had for about a week and a half. Per patient has had a headache on and off for the past week and a half. Per patient sometimes he gets nauseous and sometimes light makes it worse. Per patient she has headaches like this in the past but not as long-lasting as this one. She has never been diagnosed with migraine headaches. She has been taking ibuprofen with some relief of the headache continues which is what prompted her evaluation today. Apparently she also had 2 episodes of syncope while doing her daily activities. She denies any history of this in the past. She denies any injury. She states that she was standing when this happened. She denies any blurred vision or double vision. Denies any numbness, tingling, weakness. No weakness. No pain to her neck. No fevers chills or sweats. She says that the pain currently 8 out of 10. Denies any loss of vision. States that the syncopal episode lasted a couple seconds. She denies any syncopal episodes today. She denies any medical issues. She does state that she has lost some of her her on the back of her head and she is not sure this is related. She states that her head feels inflamed as well. She has not seen anybody for this. Denies . PFSH Past Medical History Hx Anticoagulant Therapy: No Asthma: Yes Autoimmune Disease: No Blood Disorders: No Anxiety: No Depression: No Cancer: No Cardiovascular Problems: No Chemotherapy: No Cerebrovascular Accident: No Diabetes: No Diminished Hearing: No Endocrine: No Gastrointestinal Disorders: Yes (CHRONIC ABDOMINAL PAIN) GERD: Yes Genitourinary: No Headaches: Yes Immune Disorder: No Implanted Vascular Access Dvce: No Medical other: Yes (SINUSITIS ) Musculoskeletal: No Neurologic: No Psychiatric: No Reproductive: No Respiratory: Yes (ASTHMA) Immunizations Current: Yes Migraines: Yes Seizures: No Sickle Cell Disease: No Tetanus Vaccination: < 5 Years Influenza Vaccination: No ?: Not LMP: September : 2 Para: 2 Miscarriage: 0 : 0 Past Surgical History Section: Yes (x2) Gynecologic Surgery: Yes ( X 2 ) Hysterectomy: No Tonsillectomy: Yes Other Surgery: Yes (ENDOSCOPY AND COLONOSCOPY) Social History Alcohol Use: Yes (OCC ) Tobacco Use: No Substance Use: No Allergies-Medications (Allergen,Severity, Reaction): Coded Allergies: methylprednisolone (Unverified Allergy, Severe, RASH, ITCHY, 07/05/17) Reported Meds & Prescriptions Reported Meds & Active Scripts Active Prochlorperazine Maleate 10 Mg Tab 10 Mg PO Q6H PRN Robaxin (Methocarbamol) 750 Mg Tab 750 Mg PO QID Mobic (Meloxicam) 15 Mg Tab 15 Mg PO DAILY Tylenol (Acetaminophen) 325 Mg Tab 650 Mg PO Q6H PRN Reported Phentermine (Phentermine HCl) 37.5 Mg Cap 37.5 Mg PO DAILY Ventolin Hfa 18 GM Inh (Albuterol Sulfate) 90 Mcg/Act Aer 2 Puff INH Q4-6H PRN Review of Systems Except as stated in HPI: all other systems reviewed are Neg Physical Exam Narrative GENERAL: SKIN: Warm and dry. HEAD: Atraumatic. Normocephalic. EYES: Pupils equal and round 6 mms reactive to light and accomodation. No scleral icterus. No injection or drainage. ENT: No nasal bleeding or discharge. Mucous membranes pink and moist. Tongue is midline. No uvula deviation. NECK: Trachea midline. No JVD. CARDIOVASCULAR: Regular rate and rhythm. No murmurs, S3, S4. RESPIRATORY: No accessory muscle use. Clear to auscultation. Breath sounds equal bilaterally. GASTROINTESTINAL: Abdomen soft, non-tender, nondistended. Hepatic and splenic margins not palpable. MUSCULOSKELETAL: Extremities without clubbing, cyanosis, or edema. No obvious deformities. Full ROM of the upper and lower extremities bilaterally. 2+ Pulses. NEUROLOGICAL: Awake and alert. No obvious cranial nerve deficits. Motor grossly within normal limits. Five out of 5 muscle strength in the arms and legs. Normal speech. PSYCHIATRIC: Appropriate mood and affect; insight and judgment normal. Data Data Last Documented VS Vital Signs Date Time Temp Pulse Resp B/P (MAP) Pulse Ox O2 Delivery O2 Flow Rate FiO2 10/28/17 15:48 100 Room Air 10/28/17 15:47 85 18 105/59 (74) 10/28/17 13:51 98.3 Orders Orders Complete Blood Count With Diff (10/28/17 13:53) Comprehensive Metabolic Panel (10/28/17 13:53) Urinalysis - C+S If Indicated (10/28/17 13:53) Ed Urine Pregnancytest Poc (10/28/17 13:53) Electrocardiogram (10/28/17 15:19) Magnesium (Mg) (10/28/17 15:19) Thyroid Stimulating Hormone (10/28/17 15:19) Chest, Single Ap (10/28/17 15:19) Ct Brain W/O Iv Contrast(Rout) (10/28/17 15:19) Iv Access Insert/Monitor (10/28/17 15:19) Ecg Monitoring (10/28/17 15:19) Oximetry (10/28/17 15:19) Sodium Chlor 0.9% 1000 Ml Inj (Ns 1000 M (10/28/17 15:30) Prochlorperazine Inj (Compazine Inj) (10/28/17 15:30) Diphenhydramine Inj (Benadryl Inj) (10/28/17 15:30) Ketorolac Inj (Toradol Inj) (10/28/17 18:00) Ed Discharge Order (10/28/17 18:44) Labs Laboratory Tests Test 10/28/17 14:05 10/28/17 15:40 10/28/17 17:30 White Blood Count 6.7 TH/MM3 Red Blood Count 5.09 MIL/MM3 Hemoglobin 13.6 GM/DL Hematocrit 42.1 % Mean Corpuscular Volume 82.7 FL Mean Corpuscular Hemoglobin 26.8 PG Mean Corpuscular Hemoglobin Concent 32.4 % Red Cell Distribution Width 15.7 % Platelet Count 373 TH/MM3 Mean Platelet Volume 8.5 FL Neutrophils (%) (Auto) 68.2 % Lymphocytes (%) (Auto) 22.8 % Monocytes (%) (Auto) 7.4 % Eosinophils (%) (Auto) 1.0 % Basophils (%) (Auto) 0.6 % Neutrophils # (Auto) 4.6 TH/MM3 Lymphocytes # (Auto) 1.5 TH/MM3 Monocytes # (Auto) 0.5 TH/MM3 Eosinophils # (Auto) 0.1 TH/MM3 Basophils # (Auto) 0.0 TH/MM3 CBC Comment DIFF FINAL Differential Comment Blood Urea Nitrogen 9 MG/DL Creatinine 0.86 MG/DL Random Glucose 102 MG/DL Total Protein 8.6 GM/DL Albumin 4.0 GM/DL Calcium Level 9.9 MG/DL Alkaline Phosphatase 88 U/L Aspartate Amino Transf (AST/SGOT) 14 U/L Alanine Aminotransferase (ALT/SGPT) 16 U/L Total Bilirubin 0.4 MG/DL Sodium Level 140 MEQ/L Potassium Level 3.7 MEQ/L Chloride Level 104 MEQ/L Carbon Dioxide Level 26.5 MEQ/L Anion Gap 10 MEQ/L Estimat Glomerular Filtration Rate 99 ML/MIN Magnesium Level 2.0 MG/DL Thyroid Stimulating Hormone 3rd Gen 0.390 uIU/ML Urine Color YELLOW Urine Turbidity CLEAR Urine pH 6.0 Urine Specific [place] 1.023 Urine Protein TRACE mg/dL Urine Glucose (UA) NEG mg/dL Urine Ketones 10 mg/dL Urine Occult Blood NEG Urine Nitrite NEG Urine Bilirubin NEG Urine Urobilinogen LESS THAN 2.0 MG/DL Urine Leukocyte Esterase NEG Urine RBC LESS THAN 1 /hpf Urine WBC 1 /hpf Urine Squamous Epithelial Cells 4 /hpf Urine Hyaline Casts 2 /lpf Urine Mucus MOD /lpf Microscopic Urinalysis Comment CULT NOT INDICATED MDM Medical Decision Making Medical Screen Exam Complete: Yes Emergency Medical Condition: Yes Medical Record Reviewed: Yes Interpretation(s) CBC & BMP Diagram 10/28/17 14:05 Total Protein 8.6 H, Albumin 4.0, Calcium Level 9.9, Alkaline Phosphatase 88, Aspartate Amino Transf (AST/SGOT) 14 L, Alanine Aminotransferase (ALT/SGPT) 16, Total Bilirubin 0.[address] 10/28/17 1519 Signed Impressions: CONCLUSION: Unremarkable study. Chest X-Ray 10/28/17 151 Signed Impressions: CONCLUSION: Negative examination. Differential Diagnosis Headache versus cephalgia versus migraine headache versus tension headache versus ICH versus electrolyte abnormality versus dehydration Narrative Course 22-year-old female that presents to the ED for evaluation of headache and syncope. Patient was properly examined and was found to have signs and symptoms of unclear etiology with deafly concerning for significant disease. She has never had a CT scan. She states that the headaches she has had in the past but not as severe as this 1. Labs and imaging were ordered. Labs and imaging were essentially unremarkable. She was given IV medications cocktail of Compazine, Toradol, Benadryl with improvement of symptoms. She was given 1 L of fluids. Unclear as to the etiology of the loss of hair but I do note suspect that this is related. This could be alopecia aerata. At this time I think she can follow-up outpatient with primary care doctor for further evaluation. There is no sign of tinea infection at this time. Patient was given Compazine prescription. Told to follow-up closely with PCP. see ED if worsening symptoms. Diagnosis Primary Impression: Headache Qualified Codes: R51 - Headache Patient Instructions: General Instructions Additional Instructions: Take medication as prescribed. Follow-up with PCP. See ED if worsening symptoms. Med/Other Pt SpecificInfo: Prescription(s) given Scripts Prochlorperazine Maleate (Prochlorperazine Maleate) 10 Mg Tab 10 MG PO Q6H Y for NAUSEA OR VOMITING, #14 TAB 0 Refills Prov: Mukesh Munoz MD 10/28/17 Disposition: 01 DISCHARGE HOME Condition: Stable Caesar Briscoe Oct 28, 2017 18:47
[2017-10-28 19:01] VITALS: BP 110/70
--- NOTE | 2017-10-29 16:06 | EKG ---
Date Performed: 10/28/2017 Time Performed: 14:30:19 PTAGE: 22 years EKG: Sinus rhythm WITH SINUS ARRHYTHMIA POSSIBLE RIGHT VENTRICULAR CONDUCTION DELAY BORDERLINE ECG Since the PREVIOUS TRACING , no significant change noted PREVIOUS TRACIN07/26/2017 20.38 DOCTOR: Kaylie Oviedo Interpretating Date/Time 10/29/2017 16:01:54
== END 2017-10-28 19:08 | disposition home or self-care (01) ==
LOC: NEPE 13:47
DX: R51 Headache (principal); R55 Syncope and collapse; I49.8 Other specified cardiac arrhythmias; J45.909 Unspecified asthma, uncomplicated; K21.9 Gastro-esophageal reflux disease without esophagitis; Z79.51 Long term (current) use of inhaled steroids; Z79.899 Other long term (current) drug therapy; Z88.8 Allergy status to other drugs, medicaments and biological substances
CPT/HCPCS: 70450; 71045; 80053; 81001; 83735; 84443; 84703; 85025; 93005; 96374; 96375; 99285; J0780; J1200; J1885; J7030